=== PATIENT | male | born 1955 | race Caucasian/White ===

== ENCOUNTER 2016-09-29 09:40 | Day surgery (SDC) | payer OTHER ==
[~2016-09-29] VITALS: Ht 182.9 cm; Wt 97.5 kg
[2016-09-29 10:58] VITALS: Ht 182.9 cm; Wt 97.5 kg
[2016-09-29] MEDS ORDERED: LIDOCAINE 2% (SDV) 5 ML INJ ONE (11:24)
[2016-09-29] MEDS ORDERED: PROPOFOL 40 ML ONE (11:24)
[2016-09-29 11:29] VITALS: BP 132/75; PULSE 68; RESP 20
--- NOTE | 2016-09-29 16:26 | GILP ---
DATE OF PROCEDURE: 09/29/2016 PROCEDURE PERFORMED: Esophagogastroduodenoscopy with biopsy and colonoscopy with biopsy. INDICATION: A 60-year-old male undergoing this procedure for surveillance of esophageal varicose ve in and colonoscopy for colon cancer. He has cirrhosis of liver from hepatitis C. INFORMED CONSENT: The risk of the procedure, related and unrelated complications, anesthetic risks and alternatives discussed. Informed consent was obtained. DESCRIPTION OF PROCEDURE: The patient was brought to the GI lab, sedated by Dr. Gao. After obtain ing sedation, scope was passed with much ease into esophagus. No varicose vein identified. The pat ient had a small hiatal hernia. Scope was advanced further down into stomach. Gastritis was seen. Two biopsies obtained. Duodenum, first and second part including ampulla appeared normal. Retrove rsion also did not show any gastric varicose vein. Scope was straightened out and removed with good patient tolerance. The Z line was at around 35 to 36 cm. IMPRESSION: 1. Normal esophagus. 2. No varicose vein. 3. No gastric varicose vein. 4. Gastritis. 5. Hiatal hernia. 6. Normal duodenum. PLAN: Review the histopathology. COLONOSCOPY REPORT: The patient was turned around, scope was passed with much ease into rectum, adv anced through sigmoid, descending, transverse colon all the way into cecum. Appendiceal orifice lauri ntified. IC valve identified. While coming out, mucosa thoroughly inspected. Clarity was good exc ept that some places where there was a biliary polyp which could not be removed. There was a polyp identified at 20 cm, successfully removed by cold biopsy forceps. There was another polyp in the re ctum. Again, these are both diminutive and successfully remove by cold biopsy forceps. Retroversio n done, no growth was seen. Patient had mild diverticulosis, some of them large mouth. Scope was r emoved with good patient tolerance. IMPRESSION: 1. Normal findings all the way into cecum. 2. Sessile diminutive polyp successfully removed by cold biopsy forceps. 3. Mild diverticulosis. 4. Clarity was good. 5. Cleanliness was adequate. 6. Normal retroversion. PLAN: Review the histopathology of the polyp and stay on high fiber diet. Dictated By: RACHEL YADAV/RICHMOND Conf#: [id number] DID#: [id number]
== END 2016-09-29 13:22 | disposition home or self-care (01) ==
LOC: GIL 09:40
PROVIDERS: ATTEND Internal Medicine Gastroenterology
DX: Z12.11 Encounter for screening for malignant neoplasm of colon (principal); K57.90 Diverticulosis of intestine, part unspecified, without perforation or abscess without bleeding; K44.9 Diaphragmatic hernia without obstruction or gangrene; K29.70 Gastritis, unspecified, without bleeding
CPT/HCPCS: 43239; 45380; 88305; 88312; Z7610